=== PATIENT | male | born 2000 ===

== ENCOUNTER 2024-05-14 17:30 | Emergency (ER) | payer OTHER, SELFPAY ==
[2024-05-14 17:39] VITALS: BP 161/102
[2024-05-14 18:16] LABS: % Basophils 0.8 % (0-2); % Eosinophils 2.3 % (0-6); % Immature Granulocytes 0.5 % (0-0.5); % Lymphocytes 21.9 % (20.5-51.1); % Neutrophils 66.5 % (42.2-75.2); Absolute Basophils 0.1 10^3/uL (0-0.2); Absolute Eosinophils 0.2 10^3/uL (0-0.7); Absolute Lymphocytes 1.9 10^3/uL (1.2-3.4); Absolute Monocytes 0.7 10^3/uL (0.1-0.6); Absolute Neutrophils 5.7 10^3/uL (1.4-6.5); Hematocrit 42.9 % (39.0-52.0); Hemoglobin 15.7 g/dL (13.0-18.0); Mean Corp Hgb Conc. 36.6 g/dL (33.0-37.0); Mean Corpuscular Hgb 28.3 pg (27.0-31.0); Mean Corpuscular Volume 77.4 fL (80.0-94.0); Mean Platelet Volume 8.5 fL (7.4-10.4); Nucleated Red Blood Cells % 0 % (-); Platelet Count 230 10^3/uL (130-400); Red Blood Cell Count 5.54 10^6/uL (4.70-6.10); Red Cell Dist. Width 12.2 % (11.5-14.5); White Blood Cell Count 8.5 10^3/uL (4.8-10.8)
--- NOTE | 2024-05-14 18:31 | ED.GENMED ---
History of Present Illness
General
Chief Complaint: Fainting/Passed Out
Source: patient
Time Seen by Provider: 05/14/24 18:17
History of Present Illness
History of Present Illness:
23yoM with a history of GERD presenting for evaluation after a syncopal episode 3 hours ago. Patient has been having coughing fits over the past 2 weeks. states that the coughing fit seems severe and he will turn bright red during the
coughing fit. He also has been having intermittent hemoptysis. He started to have a coughing fit this afternoon. He decided to go up the steps to see if his coughing would resolve. While he was walking up the steps, he had a syncopal episode.
Patient fell down the steps to the incident. He denies any preceding chest pain, palpitation, shortness of breath. He does not recall any dizziness. Of note, patient was seen at [facility] ED 3 days ago for rectal bleeding. A rectal exam was
performed at that time which was reportedly normal. He was referred to gastroenterology and he has an appointment scheduled in 4 days. His only current medications are omeprazole and Pepcid.
Phy Exam
General Physical Exam
General Presentation: well appearing and no apparent distress
General age: appears stated age
General Skin: warm and dry
General Habitus: normal
General Mental: alert
General Hydration: appears well hydrated
ENT Exam
ENT Exam: normocephalic
Cardiovascular Exam
Cardiovascular Exam: regular rate/rhythm and no murmur
Pulmonary Exam
Pulmonary Exam: lungs clear, no respiratory distress, no rales, no crackles, no rhonchi and no wheezing
Gastrointestinal Exam
Gastrointestinal Exam: non tender, soft and non distended
Neurological Exam
Neurological Exam: alert and no motor deficits
[place] Coma Scale
Eye Opening: Spontaneous
Verbal Response: Oriented
Motor Response: Obeys Commands
GCS Total Score: 15
Skin Exam
Skin Exam: normal color and warm/dry
Psychiatric Exam
Psychiatric Exam: normal mood/affect
Course
Orders/Labs/Results
Orders:
Orders
05/14/24 17:34
Electrocardiogram (*1) Urgent
Reason for Study: Syncope
EKG- Treatment ONCE
05/14/24 18:09
Complete Blood Count/With Diff Urgent
Comprehensive Metabolic Panel Urgent
05/14/24 18:11
CR Chest - 2 Views Urgent
Comment: blood in sputum
Reason For Exam: cough for 1.5 weeks
05/14/24 18:30
Cardiac Monitoring- Treatment ONCE
05/14/24 18:41
D-Dimer Urgent
Troponin I Urgent
Abnormal Lab Results
05/14/24
18:09
MCV 77.4 L fL
(80.0-94.0)
Absolute Monos (auto) 0.7 H 10^3/uL
(0.1-0.6)
Glucose 109 H mg/dl
(70-99)
Total Protein 8.3 H g/dl
(6.3-8.2)
Albumin 5.2 H g/dl
(3.5-5.0)
05/14/24 18:09
05/14/24 18:09
Vital Signs
Initial and Last Documented VS:
Initial Vital Signs
Temp Pulse Resp BP Pulse Ox
97.9 F 98 18 161/102 99
05/14/24 17:39 05/14/24 17:39 05/14/24 17:39 05/14/24 17:39 05/14/24 17:39
Last Documented Vital Signs
Temp Pulse Resp BP Pulse Ox
97.9 F 81 20 142/82 99
05/14/24 17:39 05/14/24 20:05 05/14/24 20:05 05/14/24 20:04 05/14/24 20:05
MDM/Problems Addressed
Differential Diagnosis Includes:
23yoM here after a syncopal episode. Preceded by a coughing fit. No CP/SOB. Also c/o cough x 2 weeks with intermittent hemoptysis. He is mildly hypertensive with otherwise normal vital signs. Oxygen saturation 99% on room air. Patient is
well-appearing in no acute distress. Exam is reassuring. Differential diagnosis includes but is not limited to: tussive syncope, vasovagal episode, orthostatic hypotensive, doubt but consider PE in the setting of hemoptysis and syncope
Initial ED plan: Check cardiac labs, D-dimer, and EKG.
*EKG
Interpreted by ED Provider?: Yes
EKG Intrepretation Date: 05/14/24
Heart Rate: 77
Rate: normal
Rhythm: sinus
[place]: normal axis
Interval: normal interval
QRS Pattern: normal QRS
Ischemia: no ischemia
*Critical Care Note
Total Time (30-74mins, 75-104mins- exclusive of procedures): Not Applicable
Update Note
Update Note:
EKG shows normal sinus rhythm without ischemic changes or ectopy. Troponin within normal limits. D-dimer normal making PE very unlikely. Remainder of labs including hemoglobin unremarkable. Chest x-ray is clear without infiltrates. Patient is
stable for discharge. Suspect syncope 2/2 coughing fit. He states he frequently gets a cough secondary to his GERD. Patient is requesting a prescription for this. He was given a prescription for Protonix twice daily. Advised close follow-up
with PCP. He already has an appointment scheduled with GI in 4 days. ED return precautions discussed. He expressed understanding and is agreeable to plan. He was discharged in stable condition.
ED Attending Note
-
Portions of this chart may have been created with voice recognition software.� Occasional wrong word or��sound alike� substitutions may have occurred due to the inherent limitations of voice recognition software.
Discharge Plan
Departure
Patient Disposition: Home (Routine Discharge)
Date of Disposition: 05/14/24
Time of Disposition: 19:37
Patient with high blood pressure during this ER visit?: Yes
Discharge Problem:
Syncope, GERD (gastroesophageal reflux disease), Cough
Instructions: Syncope (Fainting) (DC)
Prescriptions:
New
pantoprazole 40 mg tablet,delayed release (DR/EC)
40 mg PO BID Qty: 60 0RF
Referrals:
Wally Menezes MD [Family Provider] -
Activity Restrictions/Additional Instructions:
Take pantoprazole as prescribed.
Please follow-up with your family doctor and gastroenterology next week. Return to the ER with any new or worsening symptoms.
Interventions
Interventions:
*Risk Screen - Suicide Last Done: 05/14/24 17:39
*General Assessment Last Done: 05/14/24 17:39
*Neglect/Abuse Screening Last Done: 05/14/24 17:39
ED- Fall Risk Assessment Last Done: 05/14/24 18:36
*ED COVID-19 Vaccine History Last Done: 05/14/24 18:36
*Nursing Disposition Last Done: 05/14/24 20:13
ED- Cardiac Assessment Last Done: 05/14/24 18:36
ED- Neurological Assessment Last Done: 05/14/24 18:36
Discharge Date and Time
Discharge Date/Time: 05/14/24 20:14
Print Language: CHINESE
[2024-05-14 18:35] VITALS: BP 148/92; BMI 30.3
[2024-05-14 18:38] LABS: ALT (SGPT) 30 U/L (0-50); AST (SGOT) 28 U/L (17-59); Albumin 5.2 g/dl (3.5-5.0); Alkaline Phosphatase 60 U/L (38-126); Blood Urea Nitrogen 16 mg/dl (9-20); Calcium 9.9 mg/dl (8.4-10.2); Carbon Dioxide 25 mmol/L (22-30); Chloride 101 mmol/L (98-107); Estimated Creatinine Clearance 108 ml/min; Glucose 109 mg/dl (70-99); Potassium 3.9 mmol/L (3.5-5.1); Sodium 143 mmol/L (135-145); Total Bilirubin 0.5 mg/dl (0.2-1.3); Total Protein 8.3 g/dl (6.3-8.2); eGFR > 60.00
[2024-05-14 19:00] VITALS: BP 145/86
[2024-05-14 19:08] LABS: D-Dimer < 0.27 ug/mlFEU (0.00-0.50)
[2024-05-14 19:11] LABS: Troponin I < 0.012 ng/ml
[2024-05-14 20:04] VITALS: BP 142/82
== END 2024-05-14 20:14 | disposition home or self-care (01) ==
LOC: EMR 17:30
PROVIDERS: Physician Assistant; EMERGENCY PHYSICIAN Student in an Organized Health Care Education/Training Program; FAMILY PHYSICIAN Family Medicine
DX: R55 Syncope and collapse (principal); R04.2 Hemoptysis; R05.9 Cough, unspecified; W10.9XXA Fall (on) (from) unspecified stairs and steps, initial encounter; K21.9 Gastro-esophageal reflux disease without esophagitis; R03.0 Elevated blood-pressure reading, without diagnosis of hypertension
CPT/HCPCS: 99283; 71046; 80053; 84484; 85025; 85379; 93005